=== PATIENT | male | born 1940 | race Caucasian/White ===

== ENCOUNTER 2019-03-31 00:20 | Outpatient (REF) | payer MEDICARE, BC, SELFPAY ==
[2019-03-31 21:55] LABS: Anion Gap 11.3 mmol/L (3-11); BUN 15 mg/dL (7-18); CO2 26.7 mmol/L (21.0-32.0); CREATININE 1.27 mg/dL (0.70-1.30); Calcium 9.3 mg/dL (8.5-10.1); Calculated LDL 78 mg/dL; Chloride 104 mmol/L (98-107); Cholesterol 178 mg/dL (50-200); Estimated GFR 54.85 (mL/min/1.73m2); Glucose 91 mg/dL (70-100); HDL Cholesterol 84 mg/dL (40-60); Potassium 4.3 mmol/L (3.5-5.1); Sodium 142 mmol/L (136-145); Triglyceride 81 mg/dL (30-150)
== END 2019-03-31 00:40 ==
LOC: NCHCN 00:20
PROVIDERS: PCP Internal Medicine; Visit Provider Internal Medicine
DX: I10 Essential (primary) hypertension (principal); Z13.6 Encounter for screening for cardiovascular disorders
CPT/HCPCS: 80048; 80061

== ENCOUNTER 2019-04-03 16:07 | Outpatient (REF) | payer MEDICARE, BC, SELFPAY ==
[2019-04-03 21:40] LABS: ALT 62 U/L (16-63); AST 66 U/L (15-37); Albumin 3.9 g/dL (3.4-5.0); Alkaline Phosphatase 63 U/L (46-116); Bilirubin, Direct 0.27 mg/dL (0.00-0.20); Bilirubin, Total 0.8 mg/dL (0.2-1.0); Total Protein 7.8 g/dL (6.4-8.2)
== END 2019-04-03 16:27 ==
LOC: NCHCN 16:07
PROVIDERS: PCP Internal Medicine; Visit Provider Internal Medicine
DX: R94.5 Abnormal results of liver function studies (principal)
CPT/HCPCS: 80076

== ENCOUNTER 2020-04-04 18:28 | Outpatient (REF) | payer MEDICARE, BC, SELFPAY ==
[2020-04-04 22:41] LABS: ALT 64 U/L (16-63); AST 65 U/L (15-37); Albumin 3.8 g/dL (3.4-5.0); Alkaline Phosphatase 68 U/L (46-116); BUN 16 mg/dL (7-18); Bilirubin, Total 1.6 mg/dL (0.2-1.0); CREATININE 1.36 mg/dL (0.70-1.30); Chloride 103 mmol/L (98-107); Estimated GFR 50.55 (mL/min/1.73m2); Glucose 96 mg/dL (74-106); Potassium 4.3 mmol/L (3.5-5.1); Sodium 140 mmol/L (136-145)
[2020-04-04 23:20] LABS: Total Protein 7.5 g/dL (6.4-8.2)
== END 2020-04-04 18:48 ==
LOC: NCHCN 18:28
PROVIDERS: PCP Internal Medicine; Visit Provider Internal Medicine
DX: I95.1 Orthostatic hypotension (principal); R94.5 Abnormal results of liver function studies
CPT/HCPCS: 80053

== ENCOUNTER 2020-04-25 19:00 | Outpatient (REF) | payer MEDICARE, BC, SELFPAY ==
[2020-04-25 21:07] LABS: Abs Immature Grans 0.08 10^3/uL (0.0-0.06); Absolute Basophil Count 0.07 10^3/uL (0.0-0.2); Absolute Eosinophil Count 0.09 10^3/uL (0.0-0.7); Absolute Lymphocyte Count 1.37 10^3/uL (1.2-3.4); Absolute Monocyte Count 0.93 10^3/uL (0.1-0.8); Basophils % 1.1; Eosinophils % 1.4; HCT 39.8 % (40.0-50.0); HGB 13.4 g/dL (13.5-17.5); Immature Grans % 1.2; Lymphocytes % 20.9; MCH 36.7 pg (27.0-33.0); MCHC 33.7 % (32.0-36.0); MPV 10.4 fL (8.0-11.0); Monocytes % 14.2; Neutrophils % 61.2; Nucleated RBC 0 %; Platelet Count 149 10^3/uL (130-400); RBC 3.65 10^6/uL (4.36-5.78); RDW 12.9 % (11.8-14.1); RDW-SD 51.8 fL; WBC 6.54 10^3/uL (4.4-10.8)
[2020-04-25 21:17] LABS: Prothrombin Time 9.9 sec (9.3-11.0)
[2020-04-25 21:23] LABS: Diff Comment RBC Morph Reviewed
[2020-04-25 21:25] LABS: Macrocytosis 2+; Polychromasia Present
[2020-04-27 09:21] LABS: HBs Antibody, Quant <3.1 mIU/mL (See Note); Hepatitis B Surface Ab Negative (See Note)
[2020-04-27 09:30] LABS: Hepatitis B Surface Ag Negative (Negative)
[2020-04-27 10:24] LABS: Hepatitis C Ab w Rflx HCV PCR Negative (Negative)
== END 2020-04-25 19:20 ==
LOC: NCHCN 19:00
PROVIDERS: PCP Internal Medicine; Visit Provider Internal Medicine
DX: K76.0 Fatty (change of) liver, not elsewhere classified (principal)
CPT/HCPCS: 86706; 86803; 87340; 85025; 85610

== ENCOUNTER 2020-09-23 18:04 | Outpatient (REF) | payer MEDICARE, BC, SELFPAY ==
[2020-09-23 21:32] LABS: ALT 37 U/L (16-63); AST 34 U/L (15-37); Albumin 3.5 g/dL (3.4-5.0); Alkaline Phosphatase 90 U/L (46-116); Anion Gap 8.7 mmol/L (3-11); BUN 18 mg/dL (7-18); Bilirubin, Total 0.8 mg/dL (0.2-1.0); CO2 25.3 mmol/L (21.0-32.0); CREATININE 1.1 mg/dL (0.70-1.30); Calcium 9.3 mg/dL (8.5-10.1); Chloride 106 mmol/L (98-107); Glucose 90 mg/dL (74-106); Potassium 5.2 mmol/L (3.5-5.1); Sodium 140 mmol/L (136-145); Total Protein 7.5 g/dL (6.4-8.2)
== END 2020-09-23 18:05 | disposition home or self-care (01) ==
LOC: NCHCN 18:04
PROVIDERS: PCP Internal Medicine; Visit Provider Internal Medicine
DX: K76.0 Fatty (change of) liver, not elsewhere classified (principal); F10.20 Alcohol dependence, uncomplicated; I10 Essential (primary) hypertension
CPT/HCPCS: 80053

== ENCOUNTER 2021-03-31 13:08 | Outpatient (REF) | payer MEDICARE, BC, SELFPAY ==
[2021-03-31 14:22] LABS: Absolute Basophil Count 0.05 10^3/uL (0.0-0.2); Absolute Eosinophil Count 0.22 10^3/uL (0.0-0.7); Absolute Lymphocyte Count 0.96 10^3/uL (1.2-3.4); Absolute Monocyte Count 1.12 10^3/uL (0.1-0.8); Absolute Neutrophil Count 4.95 10^3/uL (1.2-6.7); Basophils % 0.7; HCT 38.1 % (40.0-50.0); HGB 12.7 g/dL (13.5-17.5); Immature Grans % 1.4; MCH 36.4 pg (27.0-33.0); MCHC 33.3 % (32.0-36.0); MCV 109.2 fL (80-95); Monocytes % 15.1; Neutrophils % 66.8; Nucleated RBC 0 %; Platelet Count 150 10^3/uL (130-400); RBC 3.49 10^6/uL (4.36-5.78); RDW 13.2 % (11.8-14.1); RDW-SD 52.7 fL
[2021-03-31 14:36] LABS: ALT 47 U/L (16-63); AST 40 U/L (15-37); Albumin 3.6 g/dL (3.4-5.0); Alkaline Phosphatase 77 U/L (46-116); Anion Gap 7.5 mmol/L (3-11); BUN 21 mg/dL (7-18); Bilirubin, Total 0.9 mg/dL (0.2-1.0); CO2 27.5 mmol/L (21.0-32.0); CREATININE 1.3 mg/dL (0.70-1.30); Calcium 9.2 mg/dL (8.5-10.1); Chloride 106 mmol/L (98-107); Estimated GFR 53.12 (mL/min/1.73m2); Glucose 94 mg/dL (74-106); Potassium 5.2 mmol/L (3.5-5.1); Sodium 141 mmol/L (136-145); Total Protein 7.4 g/dL (6.4-8.2)
== END 2021-03-31 13:09 | disposition home or self-care (01) ==
LOC: NCHCN 13:08
PROVIDERS: PCP Internal Medicine; Visit Provider Internal Medicine
DX: I10 Essential (primary) hypertension (principal); K76.0 Fatty (change of) liver, not elsewhere classified
CPT/HCPCS: 80053; 85025

== ENCOUNTER 2021-09-28 17:18 | Outpatient (REF) | payer MEDICARE, BC, SELFPAY ==
[2021-09-28 15:28] LABS: Abs Immature Grans 0.07 10^3/uL (0.0-0.06); Absolute Basophil Count 0.04 10^3/uL (0.0-0.2); Absolute Eosinophil Count 0.15 10^3/uL (0.0-0.7); Absolute Lymphocyte Count 0.99 10^3/uL (1.2-3.4); Absolute Neutrophil Count 2.83 10^3/uL (1.2-6.7); Basophils % 0.9; Eosinophils % 3.2; HCT 30.2 % (40.0-50.0); HGB 10.2 g/dL (13.5-17.5); Immature Grans % 1.5; Lymphocytes % 21.2; MCH 38.1 pg (27.0-33.0); MCHC 33.8 % (32.0-36.0); MCV 112.7 fL (80-95); MPV 10.7 fL (8.0-11.0); Monocytes % 12.8; Neutrophils % 60.4; Nucleated RBC 0 %; Platelet Count 118 10^3/uL (130-400); RBC 2.68 10^6/uL (4.36-5.78); RDW 13.3 % (11.8-14.1); RDW-SD 54.9 fL; WBC 4.68 10^3/uL (4.4-10.8)
[2021-09-28 15:49] LABS: Diff Comment Agrees w/ Instrument; Macrocytosis 1+
[2021-09-28 16:01] LABS: ALT 84 U/L (16-63); AST 87 U/L (15-37); Albumin 3.5 g/dL (3.4-5.0); Alkaline Phosphatase 86 U/L (46-116); BUN 21 mg/dL (7-18); Bilirubin, Total 1.4 mg/dL (0.2-1.0); CO2 22.6 mmol/L (21.0-32.0); CREATININE 1.3 mg/dL (0.70-1.30); Calcium 8.3 mg/dL (8.5-10.1); Estimated GFR 52.98 (mL/min/1.73m2); Glucose 132 mg/dL (74-106)
[2021-09-28 16:12] LABS: Anion Gap 13.4 mmol/L (3-11); Chloride 106 mmol/L (98-107); Potassium 4.3 mmol/L (3.5-5.1); Sodium 142 mmol/L (136-145)
== END 2021-09-28 17:19 | disposition home or self-care (01) ==
LOC: NCHCN 17:18
PROVIDERS: PCP Internal Medicine; Visit Provider Internal Medicine
DX: I95.1 Orthostatic hypotension (principal); K76.0 Fatty (change of) liver, not elsewhere classified
CPT/HCPCS: 80053; 85025

== ENCOUNTER 2021-10-16 11:53 | Outpatient (REF) | payer MEDICARE, BC, SELFPAY ==
[2021-10-16 16:55] LABS: Anion Gap 8.3 mmol/L (3-11); BUN 21 mg/dL (7-18); CO2 26.7 mmol/L (21.0-32.0); CREATININE 1.5 mg/dL (0.70-1.30); Calcium 9.2 mg/dL (8.5-10.1); Chloride 106 mmol/L (98-107); Estimated GFR 44.92 (mL/min/1.73m2); Glucose 74 mg/dL (74-106); Magnesium 1.5 mg/dL (1.8-2.4); Potassium 4.8 mmol/L (3.5-5.1); Sodium 141 mmol/L (136-145)
== END 2021-10-16 11:54 | disposition home or self-care (01) ==
LOC: NCHCN 11:53
PROVIDERS: PCP Internal Medicine; Visit Provider Internal Medicine
DX: E83.42 Hypomagnesemia (principal)
CPT/HCPCS: 80048; 83735

== ENCOUNTER 2021-12-01 16:36 | Outpatient (REF) | payer MEDICARE, BC, SELFPAY ==
[2021-12-01 14:22] LABS: Abs Immature Grans 0.07 10^3/uL (0.0-0.06); Absolute Basophil Count 0.05 10^3/uL (0.0-0.2); Absolute Eosinophil Count 0.31 10^3/uL (0.0-0.7); Absolute Lymphocyte Count 1.42 10^3/uL (1.2-3.4); Absolute Monocyte Count 0.69 10^3/uL (0.1-0.8); Absolute Neutrophil Count 3.28 10^3/uL (1.2-6.7); Basophils % 0.9; Eosinophils % 5.3; HCT 35.4 % (40.0-50.0); HGB 12.1 g/dL (13.5-17.5); Immature Grans % 1.2; Lymphocytes % 24.4; MCHC 34.2 % (32.0-36.0); MCV 108 fL (80-95); MPV 10.9 fL (8.0-11.0); Monocytes % 11.9; Neutrophils % 56.3; Platelet Count 139 10^3/uL (130-400); RBC 3.27 10^6/uL (4.36-5.78); WBC 5.82 10^3/uL (4.4-10.8)
[2021-12-01 14:48] LABS: ALT 31 U/L (16-63); AST 26 U/L (15-37); Albumin 3.4 g/dL (3.4-5.0); Alkaline Phosphatase 78 U/L (46-116); BUN 18 mg/dL (7-18); Bilirubin, Total 0.7 mg/dL (0.2-1.0); CREATININE 1.1 mg/dL (0.70-1.30); Calcium 8.7 mg/dL (8.5-10.1); Chloride 106 mmol/L (98-107); Glucose 83 mg/dL (74-106); Magnesium 1.6 mg/dL (1.8-2.4); Potassium 4.5 mmol/L (3.5-5.1); Sodium 142 mmol/L (136-145); Total Protein 7.1 g/dL (6.4-8.2)
== END 2021-12-01 16:37 | disposition home or self-care (01) ==
LOC: NCHCN 16:36
PROVIDERS: PCP Internal Medicine; Visit Provider Internal Medicine
DX: E83.42 Hypomagnesemia (principal); D64.9 Anemia, unspecified; I10 Essential (primary) hypertension
CPT/HCPCS: 80053; 83735; 85025

== ENCOUNTER 2022-05-07 14:08 | Outpatient (REF) | payer MEDICARE, BC, SELFPAY ==
[2022-05-07 15:12] LABS: HCT 35.6 % (40.0-50.0); HGB 12.1 g/dL (13.5-17.5); MCH 37.8 pg (27.0-33.0); MCV 111 fL (80-95); MPV 10.7 fL (8.0-11.0); Platelet Count 167 10^3/uL (130-400); RDW 13.3 % (11.8-14.1); RDW-SD 53.9 fL; WBC 4.85 10^3/uL (4.4-10.8)
[2022-05-07 15:26] LABS: ALT 68 U/L (16-63); AST 71 U/L (15-37); Albumin 3.4 g/dL (3.4-5.0); Alkaline Phosphatase 75 U/L (46-116); Anion Gap 7.7 mmol/L (3-11); BUN 19 mg/dL (7-18); CO2 26.3 mmol/L (21.0-32.0); CREATININE 1.4 mg/dL (0.70-1.30); Calcium 9.9 mg/dL (8.5-10.1); Chloride 106 mmol/L (98-107); Estimated GFR 50.49 (mL/min/1.73m2); Glucose 124 mg/dL (74-106); Magnesium 1.4 mg/dL (1.8-2.4); Potassium 5.4 mmol/L (3.5-5.1); Sodium 140 mmol/L (136-145); Total Protein 7.8 g/dL (6.4-8.2)
== END 2022-05-07 14:09 | disposition home or self-care (01) ==
LOC: NCHCN 14:08
PROVIDERS: PCP Internal Medicine; Visit Provider Internal Medicine
DX: E83.42 Hypomagnesemia (principal); I12.9 Hypertensive chronic kidney disease with stage 1 through stage 4 chronic kidney disease, or unspecified chronic kidney disease; N18.9 Chronic kidney disease, unspecified
CPT/HCPCS: 80053; 85027; 83735

== ENCOUNTER 2022-12-17 14:44 | Outpatient (REF) | payer MEDICARE, BC, SELFPAY ==
[2022-12-17 15:45] LABS: HCT 33.1 % (40.0-50.0); HGB 11.3 g/dL (13.5-17.5); MCH 37.5 pg (27.0-33.0); MCHC 34.1 % (32.0-36.0); MCV 110 fL (80-95); MPV 10.6 fL (8.0-11.0); Platelet Count 126 10^3/uL (130-400); RBC 3.01 10^6/uL (4.36-5.78); RDW 13.2 % (11.8-14.1); RDW-SD 53.2 fL; WBC 6.38 10^3/uL (4.4-10.8)
[2022-12-17 16:38] LABS: ALT 32 U/L (16-63); AST 52 U/L (15-37); Albumin 3.4 g/dL (3.4-5.0); Alkaline Phosphatase 90 U/L (46-116); Anion Gap 8.4 mmol/L (3-11); BUN 21 mg/dL (7-18); Bilirubin, Total 1.1 mg/dL (0.2-1.0); CO2 28.6 mmol/L (21.0-32.0); CREATININE 1.3 mg/dL (0.70-1.30); Calcium 9.3 mg/dL (8.5-10.1); Chloride 103 mmol/L (98-107); Estimated GFR 54.85 (mL/min/1.73m2); Glucose 129 mg/dL (74-106); Potassium 5.2 mmol/L (3.5-5.1); Sodium 140 mmol/L (136-145); TSH 1.27 uIU/mL (0.36-3.74)
== END 2022-12-17 14:45 | disposition home or self-care (01) ==
LOC: NCHCN 14:44
PROVIDERS: PCP Internal Medicine; Visit Provider Internal Medicine
DX: R53.83 Other fatigue (principal); R53.1 Weakness
CPT/HCPCS: 80053; 85027; 84443

== ENCOUNTER 2023-05-09 10:40 | Outpatient (REF) | payer MEDICARE, BC, SELFPAY ==
[2023-05-09 14:58] LABS: HGB 10.2 g/dL (13.5-17.5); RBC 2.77 10^6/uL (4.36-5.78); WBC 5.91 10^3/uL (4.4-10.8)
[2023-05-09 14:59] LABS: Abs Immature Grans 0.05 10^3/uL (0.0-0.06); Absolute Basophil Count 0.05 10^3/uL (0.0-0.2); Absolute Eosinophil Count 0.44 10^3/uL (0.0-0.7); Absolute Lymphocyte Count 1.19 10^3/uL (1.2-3.4); Absolute Monocyte Count 1.11 10^3/uL (0.1-0.8); Absolute Neutrophil Count 3.07 10^3/uL (1.2-6.7); Basophils % 0.8; Eosinophils % 7.4; HCT 30.8 % (40.0-50.0); Immature Grans % 0.8; Lymphocytes % 20.1; MCH 36.8 pg (27.0-33.0); MCHC 33.1 % (32.0-36.0); MCV 111 fL (80-95); MPV 11.1 fL (8.0-11.0); Monocytes % 18.8; Neutrophils % 52.1; Platelet Count 160 10^3/uL (130-400); RDW 13.2 % (11.8-14.1); RDW-SD 54.1 fL
[2023-05-09 15:31] LABS: Iron 64 ug/dL (65-175); Total Iron Binding Capacity 301 ug/dL (250-450); Transferrin Sat 21 % (20-55)
[2023-05-09 15:49] LABS: ALT 46 U/L (16-63); AST 42 U/L (15-37); Albumin 3.2 g/dL (3.4-5.0); Alkaline Phosphatase 112 U/L (46-116); Anion Gap 8.9 mmol/L (3-11); BUN 17 mg/dL (7-18); Bilirubin, Total 0.5 mg/dL (0.2-1.0); CO2 23.1 mmol/L (21.0-32.0); CREATININE 1.3 mg/dL (0.70-1.30); Calcium 9.5 mg/dL (8.5-10.1); Chloride 106 mmol/L (98-107); Estimated GFR 54.85 (mL/min/1.73m2); Ferritin 413 ng/mL (26-388); Folate 15.9 ng/mL (8.6-20.0); Glucose 88 mg/dL (74-106); Potassium 4.7 mmol/L (3.5-5.1); Sodium 138 mmol/L (136-145); Total Protein 7.3 g/dL (6.4-8.2); Vitamin B12 435 pg/mL (193-986)
[2023-05-09 16:49] LABS: Diff Comment RBC Morph Reviewed; Macrocytosis 2+
== END 2023-05-09 10:41 | disposition home or self-care (01) ==
LOC: NCHCN 10:40
PROVIDERS: PCP Internal Medicine; Visit Provider Internal Medicine
DX: D64.9 Anemia, unspecified (principal)
CPT/HCPCS: 80053; 82607; 82728; 82746; 83540; 83550; 85025

== ENCOUNTER 2024-02-07 13:01 | Outpatient (REF) | payer MEDICARE, BC, SELFPAY ==
[2024-02-07 16:45] LABS: Abs Immature Grans 0.06 10^3/uL (0.0-0.06); Absolute Basophil Count 0.05 10^3/uL (0.0-0.2); Absolute Eosinophil Count 0.23 10^3/uL (0.0-0.7); Absolute Monocyte Count 0.52 10^3/uL (0.1-0.8); Absolute Neutrophil Count 3.09 10^3/uL (1.2-6.7); Basophils % 1.1 %; Eosinophils % 4.9 %; HCT 36.6 % (40.0-50.0); HGB 12.3 g/dL (13.5-17.5); Immature Grans % 1.3 %; Lymphocytes % 15.1 %; MCH 36.4 pg (27.0-33.0); MCHC 33.6 % (32.0-36.0); MCV 108 fL (80-95); MPV 10.9 fL (8.0-11.0); Monocytes % 11.2 %; Neutrophils % 66.4 %; Platelet Count 143 10^3/uL (130-400); RBC 3.38 10^6/uL (4.36-5.78); RDW 14.4 % (11.8-14.1); RDW-SD 57.4 fL; WBC 4.65 10^3/uL (4.4-10.8)
[2024-02-07 17:29] LABS: Diff Comment RBC Morph Reviewed; Macrocytosis 1+
[2024-02-07 17:44] LABS: ALT 30 U/L (16-63); AST 35 U/L (15-37); Albumin 3.6 g/dL (3.4-5.0); Alkaline Phosphatase 102 U/L (46-116); Anion Gap 7.6 mmol/L (3-11); BUN 27 mg/dL (7-18); CO2 26.4 mmol/L (21.0-32.0); CREATININE 1.4 mg/dL (0.70-1.30); Calcium 9.1 mg/dL (8.5-10.1); Chloride 105 mmol/L (98-107); Estimated GFR 49.87 (mL/min/1.73m2); Folate > 20.0 ng/mL (8.6-20.0); Glucose 98 mg/dL (74-106); Sodium 139 mmol/L (136-145); Vitamin B12 1048 pg/mL (193-986)
== END 2024-02-07 13:02 | disposition home or self-care (01) ==
LOC: LBN 13:01
PROVIDERS: PCP Internal Medicine
DX: D64.9 Anemia, unspecified (principal)
CPT/HCPCS: 80053; 82607; 82746; 85025

== ENCOUNTER 2024-10-13 22:06 | Outpatient (REF) | payer MEDICARE, BC, SELFPAY ==
[2024-10-13 22:04] LABS: Abs Immature Grans 0.13 10^3/uL (0.0-0.06); Absolute Basophil Count 0.04 10^3/uL (0.0-0.2); Absolute Eosinophil Count 0.13 10^3/uL (0.0-0.7); Absolute Lymphocyte Count 1.02 10^3/uL (1.2-3.4); Absolute Monocyte Count 0.97 10^3/uL (0.1-0.8); Absolute Neutrophil Count 3.92 10^3/uL (1.2-6.7); Basophils % 0.6 %; Eosinophils % 2.1 %; HCT 36.4 % (40.0-50.0); HGB 12.1 g/dL (13.5-17.5); Immature Grans % 2.1 %; Lymphocytes % 16.4 %; MCH 38.3 pg (27.0-33.0); MCHC 33.2 % (32.0-36.0); MCV 115 fL (80-95); MPV 10.8 fL (8.0-11.0); Monocytes % 15.6 %; Neutrophils % 63.2 %; Platelet Count 136 10^3/uL (130-400); RBC 3.16 10^6/uL (4.36-5.78); RDW-SD 59.6 fL; WBC 6.21 10^3/uL (4.4-10.8)
[2024-10-13 22:29] LABS: Diff Comment RBC Morph Reviewed; Macrocytosis 3+
[2024-10-13 22:40] LABS: ALT 38 U/L (16-63); AST 60 U/L (15-37); Albumin 3.4 g/dL (3.4-5.0); Alkaline Phosphatase 166 U/L (46-116); Anion Gap 16.6 mmol/L (3-11); BUN 19 mg/dL (7-18); Bilirubin, Total 0.8 mg/dL (0.2-1.0); CO2 22.4 mmol/L (21.0-32.0); CREATININE 1.6 mg/dL (0.70-1.30); Calcium 8.9 mg/dL (8.5-10.1); Chloride 103 mmol/L (98-107); Estimated GFR 42.22 (mL/min/1.73m2); Ferritin 203 ng/mL (26-388); Folate 16.7 ng/mL (8.6-20.0); Glucose 105 mg/dL (74-106); Potassium 4.3 mmol/L (3.5-5.1); Sodium 142 mmol/L (136-145); Total Protein 7.7 g/dL (6.4-8.2); Vitamin B12 796 pg/mL (193-986)
[2024-10-15 09:00] LABS: Transferrin 251 mg/dL (201-352)
== END 2024-10-13 22:07 | disposition home or self-care (01) ==
LOC: LBN 22:06
PROVIDERS: PCP Internal Medicine; Visit Provider Internal Medicine Hematology & Oncology
DX: D64.9 Anemia, unspecified (principal)
CPT/HCPCS: 80053; 82607; 82728; 82746; 84466; 85025

== ENCOUNTER 2024-11-19 18:28 | Outpatient (REF) | payer MEDICARE, BC, SELFPAY ==
[2024-11-19 16:36] LABS: Abs Immature Grans 0.06 10^3/uL (0.0-0.06); Absolute Basophil Count 0.02 10^3/uL (0.0-0.2); Absolute Eosinophil Count 0.17 10^3/uL (0.0-0.7); Absolute Lymphocyte Count 0.57 10^3/uL (1.2-3.4); Absolute Monocyte Count 0.61 10^3/uL (0.1-0.8); Absolute Neutrophil Count 1.58 10^3/uL (1.2-6.7); Basophils % 0.7 %; Eosinophils % 5.6 %; HCT 28.2 % (40.0-50.0); HGB 9.2 g/dL (13.5-17.5); Lymphocytes % 18.9 %; MCH 36.8 pg (27.0-33.0); MCHC 32.6 % (32.0-36.0); MCV 113 fL (80-95); MPV 10.5 fL (8.0-11.0); Monocytes % 20.3 %; Neutrophils % 52.5 %; Platelet Count 155 10^3/uL (130-400); RDW 13.5 % (11.8-14.1); RDW-SD 55.3 fL; WBC 3.01 10^3/uL (4.4-10.8)
== END 2024-11-19 18:29 | disposition home or self-care (01) ==
LOC: NCHCN 18:28
PROVIDERS: PCP Internal Medicine; Visit Provider Internal Medicine
DX: D50.9 Iron deficiency anemia, unspecified (principal)
CPT/HCPCS: 85025

== ENCOUNTER 2024-12-11 12:30 | Outpatient (REF) | payer MEDICARE, BC, SELFPAY ==
[2024-12-11 15:07] LABS: Abs Immature Grans 0.04 10^3/uL (0.0-0.06); Absolute Basophil Count 0.02 10^3/uL (0.0-0.2); Absolute Eosinophil Count 0.08 10^3/uL (0.0-0.7); Absolute Lymphocyte Count 0.76 10^3/uL (1.2-3.4); Absolute Monocyte Count 1.08 10^3/uL (0.1-0.8); Absolute Neutrophil Count 2.17 10^3/uL (1.2-6.7); Basophils % 0.5 %; Eosinophils % 1.9 %; HCT 29.2 % (40.0-50.0); HGB 9.3 g/dL (13.5-17.5); Lymphocytes % 18.3 %; MCH 35.8 pg (27.0-33.0); MCHC 31.8 % (32.0-36.0); MCV 112 fL (80-95); Neutrophils % 52.3 %; Platelet Count 136 10^3/uL (130-400); RDW 13.8 % (11.8-14.1); RDW-SD 56.9 fL; WBC 4.15 10^3/uL (4.4-10.8)
[2024-12-11 15:28] LABS: ALT 21 U/L (16-63); AST 29 U/L (15-37); Alkaline Phosphatase 125 U/L (46-116); Anion Gap 8.6 mmol/L (3-11); BUN 13 mg/dL (7-18); Bilirubin, Total 0.9 mg/dL (0.2-1.0); CO2 27.4 mmol/L (21.0-32.0); CREATININE 1.3 mg/dL (0.70-1.30); Calcium 9.2 mg/dL (8.5-10.1); Chloride 107 mmol/L (98-107); Estimated GFR 54.17 (mL/min/1.73m2); Glucose 87 mg/dL (74-106); Potassium 4.5 mmol/L (3.5-5.1); Sodium 143 mmol/L (136-145); Total Protein 7.7 g/dL (6.4-8.2)
[2024-12-11 15:32] LABS: Diff Comment RBC Morph Reviewed; Macrocytosis 2+
== END 2024-12-11 12:31 | disposition home or self-care (01) ==
LOC: NCHCN 12:30
PROVIDERS: PCP Internal Medicine; Visit Provider Internal Medicine
DX: K76.0 Fatty (change of) liver, not elsewhere classified (principal)
CPT/HCPCS: 80053; 85025

== ENCOUNTER 2025-01-13 18:52 | Outpatient (REF) | payer MEDICARE, BC, SELFPAY ==
[2025-01-13 21:01] LABS: Abs Immature Grans 0.05 10^3/uL (0.0-0.06); HCT 31.6 % (40.0-50.0); HGB 10.0 g/dL (13.5-17.5); Immature Grans % 1.2 %; MCH 34.0 pg (27.0-33.0); MCHC 31.6 % (32.0-36.0); MCV 108 fL (80-95); MPV 11.5 fL (8.0-11.0); Platelet Count 144 10^3/uL (130-400); RBC 2.94 10^6/uL (4.36-5.78); RDW 14.5 % (11.8-14.1); RDW-SD 56.5 fL; WBC 4.23 10^3/uL (4.4-10.8)
[2025-01-13 21:14] LABS: Macrocytosis 2+
[2025-01-13 21:15] LABS: Poikilocytes 1+
== END 2025-01-13 18:53 | disposition home or self-care (01) ==
LOC: NCHCN 18:52
PROVIDERS: PCP Internal Medicine; Visit Provider Internal Medicine
DX: D64.9 Anemia, unspecified (principal)
CPT/HCPCS: 85025

== ENCOUNTER 2025-03-12 15:42 | Outpatient (REF) | payer MEDICARE, BC, SELFPAY ==
[2025-03-12 15:06] LABS: HCT 34.1 % (40.0-50.0); HGB 11.4 g/dL (13.5-17.5); MCH 35.7 pg (27.0-33.0); MCHC 33.4 % (32.0-36.0); MCV 107 fL (80-95); MPV 10.6 fL (8.0-11.0); Platelet Count 136 10^3/uL (130-400); RBC 3.19 10^6/uL (4.36-5.78); RDW 15.1 % (11.8-14.1); RDW-SD 59.7 fL; WBC 4.27 10^3/uL (4.4-10.8)
[2025-03-12 16:00] LABS: Anion Gap 16.0 mmol/L (3-11); BUN 26 mg/dL (7-18); CO2 24.0 mmol/L (21.0-32.0); Calcium 9.8 mg/dL (8.5-10.1); Chloride 98 mmol/L (98-107); Estimated GFR 49.56 (mL/min/1.73m2); Glucose 74 mg/dL (74-106); Potassium 5.2 mmol/L (3.5-5.1); Sodium 138 mmol/L (136-145); Vitamin D 25 Total 78 ng/mL (30-100)
== END 2025-03-12 15:43 | disposition home or self-care (01) ==
LOC: NCHCN 15:42
PROVIDERS: PCP Internal Medicine; Visit Provider Internal Medicine
DX: Z87.39 Personal history of other diseases of the musculoskeletal system and connective tissue (principal)
CPT/HCPCS: 80048; 82306; 85027

== ENCOUNTER 2025-06-15 15:46 | Outpatient (REF) | payer MEDICARE, BC, SELFPAY ==
[2025-06-15 20:57] LABS: Abs Immature Grans 0.14 10^3/uL (0.0-0.06); HCT 29.5 % (40.0-50.0); HGB 9.7 g/dL (13.5-17.5); Immature Grans % 3.4 %; MCH 38.0 pg (27.0-33.0); MCHC 32.9 % (32.0-36.0); MCV 116 fL (80-95); MPV 10.7 fL (8.0-11.0); Platelet Count 112 10^3/uL (130-400); RBC 2.55 10^6/uL (4.36-5.78); RDW 14.6 % (11.8-14.1); RDW-SD 62.6 fL; WBC 4.11 10^3/uL (4.4-10.8)
[2025-06-15 21:06] LABS: ALT 28 U/L (10-49); AST 60 U/L (<34); Albumin 3.3 g/dL (3.2-5.0); Alkaline Phosphatase 154 U/L (46-116); Anion Gap 10.7 mmol/L (3-11); BUN 15 mg/dL (9-23); Bilirubin, Total 1.0 mg/dL (0.2-1.2); CO2 26.3 mmol/L (20.0-31.0); Calcium 8.5 mg/dL (8.3-10.6); Chloride 111 mmol/L (98-107); Glucose 81 mg/dL (74-106); Potassium 4.4 mmol/L (3.5-5.1); Sodium 148 mmol/L (136-145); Total Protein 6.9 g/dL (5.7-8.2)
[2025-06-15 21:19] LABS: Macrocytosis 2+
[2025-06-15 21:20] LABS: Poikilocytes 1+
== END 2025-06-15 15:47 | disposition home or self-care (01) ==
LOC: NCHCN 15:46
PROVIDERS: PCP Internal Medicine; Visit Provider Internal Medicine
DX: D64.9 Anemia, unspecified (principal); K74.00 Hepatic fibrosis, unspecified
CPT/HCPCS: 80053; 81003; 85025